=== PATIENT | female | born 1940 | race Two or more races ===

== ENCOUNTER 2022-02-21 09:44 | Outpatient (CLI) | payer OTHER ==
[~2022-02-21] VITALS: Ht 165.1 cm; Wt 98.9 kg
== END 2022-02-21 09:45 | disposition home or self-care (01) ==
LOC: LAB 09:44
PROVIDERS: ATTEND Orthopaedic Surgery
DX: D64.9 Anemia, unspecified (principal); D68.8 Other specified coagulation defects; N39.0 Urinary tract infection, site not specified; E11.9 Type 2 diabetes mellitus without complications; Z86.14 Personal history of Methicillin resistant Staphylococcus aureus infection; I10 Essential (primary) hypertension; Z76.89 Persons encountering health services in other specified circumstances

== ENCOUNTER 2022-02-22 11:15 | Inpatient (IN) | payer OTHER ==
[~2022-02-22] VITALS: Ht 162.6 cm; Wt 96.6 kg
[2022-02-27] MEDS ORDERED: ELIQUIS5 MG PO (12:41)
[2022-02-27] MEDS ORDERED: CRESTOR20 MG PO (12:41)
[2022-02-27] MEDS ORDERED: TOPROL XL25 M1 PO (12:41)
[2022-02-27] MEDS ORDERED: PREVACID30 MG PO (12:42)
[2022-02-27] MEDS ORDERED: HYDROCHLOROTH12.5 MG PO (12:42)
[2022-02-27] MEDS ORDERED: FOSAMAX PO (12:43)
[2022-02-27] MEDS ORDERED: PENTOXIFYLLINE400 MG PO (12:43)
[2022-02-27] MEDS ORDERED: INTEGRA PO ×2 (12:44→12:45)
[2022-02-27] MEDS ORDERED: [UNRECOGNIZED DRUG - CODE] PO (12:44)
[2022-02-27] MEDS ORDERED: AVAPRO PO (12:45)
[2022-02-28] MEDS ORDERED: INTEGRA PLUS C1 EACH (09:35)
[2022-02-28] MEDS ORDERED: DICLOFENAC SOD100 GM (09:35)
[2022-02-28] MEDS ORDERED: IRBESARTAN75 MG (09:35)
[2022-02-28] MEDS ORDERED: DAFLONEX-XL 11300 MG (09:35)
[2022-02-28] MEDS ORDERED: ALENDRONATE SOD70 MG (09:35)
[2022-02-28] MEDS ORDERED: GABAPENTIN300 M2 (09:35)
== END 2022-03-02 22:49 | disposition home or self-care (01) | DRG 470 ==
LOC: O/R 02-28 08:06 → SURG 02-28 08:06
PROVIDERS: ADMIT Orthopaedic Surgery; ATTEND Orthopaedic Surgery
PROC: 0SRD0J9 Replacement of Left Knee Joint with Synthetic Substitute, Cemented, Open Approach (ICD-10-PCS; principal; 2022-02-28 08:30)
DX: M17.12 Unilateral primary osteoarthritis, left knee (principal); I11.9 Hypertensive heart disease without heart failure

== ENCOUNTER 2022-02-27 13:51 | Outpatient (CLI) | payer OTHER ==
[~2022-02-27 13:51] MED LIST: AVAPRO PO; CRESTOR20 MG PO; ELIQUIS5 MG PO; FOSAMAX PO; HYDROCHLOROTH12.5 MG PO; INTEGRA PO; PENTOXIFYLLINE400 MG PO; PREVACID30 MG PO; TOPROL XL25 M1 PO; [UNRECOGNIZED DRUG - CODE] PO
[2022-02-28] MEDS ORDERED: INTEGRA PLUS C1 EACH (09:35)
[2022-02-28] MEDS ORDERED: DAFLONEX-XL 11300 MG (09:35)
[2022-02-28] MEDS ORDERED: GABAPENTIN300 M2 (09:35)
[2022-02-28] MEDS ORDERED: DICLOFENAC SOD100 GM (09:35)
[2022-02-28] MEDS ORDERED: ALENDRONATE SOD70 MG (09:35)
[2022-02-28] MEDS ORDERED: IRBESARTAN75 MG (09:35)
== END 2022-02-27 13:56 | disposition home or self-care (01) ==
LOC: RAD 13:51
PROVIDERS: ATTEND Orthopaedic Surgery
DX: M25.552 Pain in left hip (principal); M17.12 Unilateral primary osteoarthritis, left knee

== ENCOUNTER 2022-04-19 16:43 | Outpatient (CLI) | payer OTHER ==
[~2022-04-19 16:43] MED LIST changes: +ALENDRONATE SOD70 MG; +DAFLONEX-XL 11300 MG; +DICLOFENAC SOD100 GM; +GABAPENTIN300 M2; +INTEGRA PLUS C1 EACH; +IRBESARTAN75 MG
== END 2022-04-19 16:52 | disposition home or self-care (01) ==
LOC: RAD 16:43
PROVIDERS: ATTEND Orthopaedic Surgery
DX: M25.562 Pain in left knee (principal)

== ENCOUNTER → 2022-07-05 | Outpatient (CLI) | payer OTHER | END | disposition home or self-care (01) | LOC: NUCLEAR 10:27 | PROVIDERS: ATTEND Orthopaedic Surgery | DX: I87.2 Venous insufficiency (chronic) (peripheral) (principal) ==